=== PATIENT | female | born 1960 | race Asian ===

== ENCOUNTER 2020-09-14 21:25 | Emergency (ER) | payer OTHER ==
[~2020-09-14] VITALS: Ht 127 cm; Wt 72.6 kg
[2020-09-14 21:25] VITALS: BP 96/52; TEMP 97.5
[2020-09-14 22:29] LABS: PLATELET COUNT 253 K/uL (152-353)
[2020-09-14 22:37] LABS: POTASSIUM 4.5 mmol/L (3.6-5.2)
[2020-09-15] MEDS ORDERED: ZIPR80CA PO (04:02)
[2020-09-15] MEDS ORDERED: NEURONTIN 100M100 MG PO (04:04)
[2020-09-15] MEDS ORDERED: DIVA500T2 PO ×2 (04:05→04:08)
[2020-09-15] MEDS ORDERED: OXYC5TAB24 PO (04:16)
[2020-09-15] MEDS ORDERED: HYDROXYZINE HYD25 MG PO (04:18)
== END 2020-09-15 | disposition other institution (70) ==
LOC: ED 21:25
PROVIDERS: Emergency Medicine Emergency Medical Services
DX: R46.89 Other symptoms and signs involving appearance and behavior (principal); F20.89 Other schizophrenia; Z11.52 Encounter for screening for COVID-19; Z04.6 Encounter for general psychiatric examination, requested by authority
CPT/HCPCS: 36415; 80053; 85027; 87635; 93005; 99283; U0003

== ENCOUNTER 2020-10-29 20:11 | Emergency (ER) | payer OTHER ==
[~2020-10-29] VITALS: Ht 170.2 cm; Wt 95.7 kg
[~2020-10-29 20:11] MED LIST: DIVA500T2 PO; DIVALPROEX500 MG PO; FLUP10TA3 PO; FLUP25IN8 IM; GABA100C2 PO; HYDROXYZINE HYD25 MG PO; NEURONTIN 100M100 MG PO; OXYC5TAB24 PO; ZIPR80CA PO
[2020-10-29 20:38] LABS: PLATELET COUNT 391 K/uL (152-353)
[2020-10-29 20:56] LABS: POTASSIUM 3.8 mmol/L (3.6-5.2)
[2020-10-29 21:35] VITALS: BP 112/67; TEMP 98
[2020-10-29] MEDS ORDERED: ZIPR80CA PO (22:58)
[2020-10-29] MEDS ORDERED: DEPAKOTE DR PO (23:00)
[2020-10-29] MEDS ORDERED: FLUPHENAZINE5 MG PO (23:00)
[2020-10-29] MEDS ORDERED: NEURONTIN 100M100 MG PO (23:01)
[2020-10-29] MEDS ORDERED: FLUPHENAZINE IM (23:04)
[2020-10-29] MEDS ORDERED: LITHIUM CARB300 MG PO (23:10)
[2020-10-29] MEDS ORDERED: PROVERA10 MG PO (23:10)
== END 2020-10-29 21:50 | disposition still patient (30) ==
LOC: ED 20:11
PROVIDERS: Hospitalist
DX: F25.8 Other schizoaffective disorders (principal); R46.89 Other symptoms and signs involving appearance and behavior; Z11.52 Encounter for screening for COVID-19; Z04.6 Encounter for general psychiatric examination, requested by authority
CPT/HCPCS: 36415; 80053; 80164; 85027; 87635; 93005; 99283; U0003